=== PATIENT | male | born 1975 | race Caucasian/White ===

== ENCOUNTER 2021-01-03 20:43 | Emergency (ER) | payer MEDICARE, SELFPAY ==
[2021-01-03 21:18] VITALS: BP 156/82; PULSE 80; RESP 14; TEMP 36.8; O2SAT 97; BMI 29.4
--- NOTE | 2021-01-03 22:31 | CTR_ITS ---
PROCEDURE INFORMATION: Exam: CT Abdomen And Pelvis With Contrast Exam date and time: 01/03/2021 11:55 PM Age: 45 years old Clinical indication: Abdominal pain; Localized; Right lower quadrant (rlq); Patient HX: C/O rlq pain; Additional info: Rlq abd pain TECHNIQUE: Imaging protocol: Computed tomography of the abdomen and pelvis with contrast. Radiation optimization: All CT scans at this facility use at least one of these dose optimization techniques: automated exposure control; mA and/or kV adjustment per patient size (includes targeted exams where dose is matched to clinical indication); or iterative reconstruction. Contrast material: OMNI 300; Contrast volume: 95 ml; Contrast route: INTRAVENOUS (IV); COMPARISON: US gall bladder [id number] 02/01/2019 10:10 AM RADIATION DOSE METRICS: Total DLP (mGy-cm): 1776.16 FINDINGS: Lungs: Mild probable atelectasis in the lower lungs. No pleural fluid. Mediastinal space: There may be some mucosal/wall thickening involving the lower esophagus. This is nonspecific, but could represent evidence for esophagitis. Please correlate clinically. Liver: Unremarkable. Gallbladder and bile ducts: No definite gallbladder abnormality by CT. No biliary tree dilation. Pancreas: Unremarkable. Spleen: Unremarkable. Adrenal glands: Unremarkable. Kidneys and ureters: Unremarkable. Stomach and bowel: There are no CT findings to strongly suggest diverticulitis. Appendix: The appendix is visualized and appears normal. Intraperitoneal space: No free air, ascites, or bowel distention. Vasculature: No evidence for abdominal aortic aneurysm. Lymph nodes: No retroperitoneal adenopathy. Urinary bladder: Unremarkable as visualized. Reproductive: Essentially unremarkable for age. Bones/joints: No significant acute finding. Soft tissues: No significant acute finding. CT/CT abdomen pelvis w con* [id number] IMPRESSION: 1. Normal appendix. 2. No free air or bowel distention. 3. Possibly some thickening of the lower esophagus, see above discussion. 4. Other findings discussed above. Radiation Dose CTDIVOL = (mGy): DLP = 1776.16 (mGy-cm)
--- NOTE | 2021-01-03 22:31 | ED_ITS ---
HPI - Abdominal Pain General: Chief Complaint: Abdominal Pain Stated Complaint: poss appendicitis Time Seen by Provider: 01/03/21 22:31 Source: patient Mode of arrival: ambulatory Limitations: no limitations History of Present Illness: HPI narrative: Patient comes in for right-sided abdominal pain. Patient reports the pain has been on and off for the last few weeks. Patient comes in due to worsening pain tonight with increased nausea. Patient appears well. Patient appears in mild to no pain at rest. Patient is on medication for pain for his back and left shoulder. Patient does occasionally have constipation due to his pain medication. Review of Systems General: Reports: 10 or more systems reviewed and unremarkable except in HPI and below GI: Reports: abdominal pain PFSH ED PFSH: Social History (Updated 09/03/20 @ 16:30 by LUMA eBntley) Smoking and tobacco status: former smoker Alcohol intake: unknown Adopted: No Caregiver/support person: No Lives independently: No Household members: spouse Marital status: Current occupational status: disabled Physical Exam Const: COMMON NORMALS: no acute distress and patient oriented x3 GENERAL APPEARANCE: cooperative HENMT: COMMON NORMALS: normocephalic and Normal external nose present HEAD & SCALP: normal to inspection and normocephalic NOSE: Normal external nose present MOUTH: Normal oral and palatal mucosa present THROAT: posterior oropharynx normal Eye: GENERAL EYE: appearance normal, both eyes and all related structures Neck/C-Spine: COMMON NORMALS: full ROM Chest: COMMONS NORMALS: normal inspection of the chest Resp: COMMON NORMALS: normal respiratory effort EFFORT & INSPECTION: Yes able to speak in complete sentences Cardio: COMMON NORMALS: regular rate and regular rhythm RATE: regular rate RHYTHM: regular rhythm GI: COMMON NORMALS: Soft to palpation INSPECTION: Yes normal to inspection PALPATION: Yes Soft to palpation, Yes Tenderness to palpation present (GI) Details: RLQ and Yes Guarding due to palpation present (GI) : COMMON NORMALS: Yes no CVA tenderness BLADDER/KIDNEY EXAM: Yes no CVA tenderness Back/Pelvis: COMMON NORMALS: no CVA tenderness and thoracic and lumbar spine normal to inspection Extremity: COMMON NORMALS: normal to inspection Neuro: COMMON NORMALS: patient oriented x3 and moves all extremities Psych: COMMON NORMALS: mental status grossly normal and cooperative Skin: COMMON NORMALS: no rashes or lesions noted GENERAL SKIN EXAM: no rashes or lesions noted Course Vital Signs: Vital signs: Vital Signs Temperature 98.2 F 01/03/21 21:18 Pulse Rate 68 01/04/21 01:00 Respiratory Rate 16 01/04/21 01:00 Blood Pressure 124/74 01/04/21 00:30 Pulse Oximetry 98 01/04/21 01:00 MDM - Abdominal Pain MDM Narrative: Medical decision making narrative: Patient comes in today with complaints of lower quadrant abdominal pain. Patient reports pain for the last week or so. Patient states that he has not fallen or been lifting anything heavy. On exam bowel sounds are present and patient was very tender to the right lower quadrant with some psoas pain. Vital signs were normal. Differential diagnosis includes appendicitis, renal calculi, gastroenteritis, muscle strain. Laboratory values were unremarkable. Patient does have some mild elevation in his creatinine at 1.3. CT of the abdomen and pelvis was performed due to patient's significant localized right lower quadrant abdominal pain to rule out appendicitis. CT exam noted normal appendix. Further discussion with patient realized that patient had been doing abdominal crunches frequently and a few days ago did about 200 prior to the pain becoming unbearable. I suspect patient probably has muscle strain of abdomen and no further testing was performed. Patient was recommended to follow-up with primary care for further treatment. The recommended patient avoid excessive exercise until pain is resolved. Lab Data: Labs: Lab Results 01/03/21 01/03/21 01/04/21 Range/Units 22:49 22:49 00:36 WBC 6.7 (4.0-10.0) 10^3/ uL RBC 4.86 (4.1-5.3) 10^6/u L Hgb 16.0 (11.7-16.6) g/dL Hct 46.5 (42.0-52.0) % MCV 95.7 H (80-94) fL MCH 32.9 (28.0-34.0) pg MCHC 34.4 (30.0-36.0) g/dL RDW 12.5 (12.1-15.1) % Plt Count 173 (130-400) 10^3/c mm MPV 10.7 H (7.4-10.4) fL Neut % (Auto) 48.9 % Lymph % (Auto) 40.8 % [place] % (Auto) 8.3 % Eos % (Auto) 1.2 % Baso % (Auto) 0.6 % Neut # (Auto) 3.26 (1.8-7.7) 10^3/u L Lymph # (Auto) 2.7 (0.8-4.8) 10^3/u L [place] # (Auto) 0.6 (0.2-0.9) 10^3/u L Eos # (Auto) 0.1 (0.0-0.8) 10^3/u L Baso # (Auto) 0.0 (0.0-0.1) 10^3/u L Nucleated RBC % (a uto) 0 % Nucleated RBCs # 0.0 /100WBC Sodium 137 (136-145) mmol/L Potassium 3.9 (3.5-5.1) mmol/L Chloride 100 (98-107) mmol/L Carbon Dioxide 27 (22-29) mmol/L Anion Gap 13.9 (5-19) BUN 14 (6-20) mg/dL Creatinine 1.3 H (0.7-1.2) mg/dL GFR Calculation 59.7 L (90-130) mL/min Glucose 93 (65-115) mg/dL Calculated Osmolal ity 284 L (285-295) mOsm/k g Calcium 9.1 (8.5-10.5) mg/dL Total Bilirubin 0.5 (0.15-1.2) mg/dL AST 23 (0-40) U/L ALT 26 (0-41) U/L Alkaline Phosphata se 84 (40-130) IU/L C-Reactive Protein 1.1 (0.0-4.9) mg/L Total Protein 7.3 (6.6-8.7) g/dL Albumin 4.4 (3.5-5.2) g/dL Globulin 2.9 (1.3-4.6) g/dL Lipase 57 (13-60) U/L Urine Color Yellow (Yellow) Urine Appearance Clear (CLEAR) Urine pH 6 (5-7) Ur Specific Gravit y 1.010 (1.005-1.030) Urine Protein Neg (Negative) Urine Glucose (UA) Norm (Normal) Urine Ketones Negative (Negative) Urine Blood Neg (Negative) Urine Nitrate Negative (Negative) Urine Bilirubin Neg (Negative) Urine Urobilinogen 1 H (Negative) mg/dL Ur Leukocyte Kateyln ase Negative (Negative) Discharge Plan Discharge Patient Disposition: Home Clinical Impression: Abdominal muscle strain Qualifiers: Encounter type: initial encounter Qualified Code(s): S39.011A - Strain of muscle, fascia and tendon of abdomen, initial encounter Condition: Stable Discharge Orders: Discharge ED (Routine); Ordered 01/04/21 Ordered By: Romeo Healy Referrals: Phani Dennis DO [Primary Care Provider] - Discharge Diet: Usual diet Discharge Activity: Increase activity as tolerated Patient Instructions: Muscle Strain (ED), Opioid Safety Activity Restrictions/Additional Instructions: Activity as tolerated. Use ice or heat to the area for comfort. Drink plenty of water. Use acetaminophen or ibuprofen for pain. Follow-up with primary care for further treatment. Return to the emergency room for high fever or new concerns. Coding Level of Care Code ED Natural Resource Officer for Rhonda Fwd Exam Comprehensive
[2021-01-03 22:54] VITALS: BP 128/77; PULSE 78; RESP 14; O2SAT 95
[2021-01-03 22:56] LABS: Basophils % 0.6 %; Eosinophils # 0.1 10^3/uL (0.0-0.8); Eosinophils % 1.2 %; Hematocrit 46.5 % (42.0-52.0); Lymphocytes # 2.7 10^3/uL (0.8-4.8); Lymphocytes % 40.8 %; Mean Corpuscular HGB Conc 34.4 g/dL (30.0-36.0); Mean Corpuscular Hemoglobin 32.9 pg (28.0-34.0); Mean Corpuscular Volume 95.7 fL (80-94); Mean Platelet Volume 10.7 fL (7.4-10.4); Monocytes # 0.6 10^3/uL (0.2-0.9); Monocytes % 8.3 %; Neutrophils # 3.26 10^3/uL (1.8-7.7); Neutrophils % 48.9 %; Nucleated Red Blood Cells % 0 %; Platelet Count 173 10^3/cmm (130-400); Red Blood Count 4.86 10^6/uL (4.1-5.3); Red Cell Distribution Width 12.5 % (12.1-15.1); White Blood Count 6.7 10^3/uL (4.0-10.0)
[2021-01-03 23:00] VITALS: BP 142/87; PULSE 84; RESP 18; O2SAT 96
[2021-01-03 23:20] LABS: Alanine Aminotransferase 26 U/L (0-41); Albumin Level 4.4 g/dL (3.5-5.2); Alkaline Phosphatase 84 IU/L (40-130); Anion Gap 13.9 (5-19); Aspartate Amino Transferase 23 U/L (0-40); Blood Urea Nitrogen 14 mg/dL (6-20); C Reactive Protein 1.1 mg/L (0.0-4.9); Calcium 9.1 mg/dL (8.5-10.5); Carbon Dioxide 27 mmol/L (22-29); Chloride 100 mmol/L (98-107); Globulin 2.9 g/dL (1.3-4.6); Glomerular Filtration Rate 59.7 mL/min (90-130); Glucose 93 mg/dL (65-115); Lipase 57 U/L (13-60); Osmolality Calculated 284 mOsm/kg (285-295); Potassium 3.9 mmol/L (3.5-5.1); Sodium 137 mmol/L (136-145); Total Bilirubin 0.5 mg/dL (0.15-1.2); Total Protein 7.3 g/dL (6.6-8.7)
[2021-01-03 23:30] VITALS: BP 135/74; PULSE 74; RESP 16; O2SAT 98
[2021-01-03] MEDS: iohexol 300 mg/mL 100 mL Btl IV (23:57)
[2021-01-04] VITALS: PULSE 74; RESP 18; O2SAT 98
[2021-01-04 00:30] VITALS: BP 124/74; PULSE 71; RESP 18; O2SAT 94
[2021-01-04 01:00] VITALS: PULSE 68; RESP 16; O2SAT 98
[2021-01-04 01:09] LABS: Add Urine Microscopic? NO
[2021-01-04 01:30] VITALS: BP 128/78; PULSE 78; RESP 14; O2SAT 98
[2021-01-04 01:48] LABS: Bilirubin Urine Neg (Negative); Blood Urine Neg (Negative); Glucose Urine UA Norm (Normal); Ketones Urine Negative (Negative); Nitrate Urine Negative (Negative); Protein Urine Neg (Negative); Urine Appearance Clear (CLEAR); Urine Color Yellow (Yellow); pH Urine 6 (5-7)
[2021-01-04 01:49] LABS: Leukocyte Esterase Urine Negative (Negative); Urobilinogen Urine 1 mg/dL (Negative)
[2021-01-04 02:00] VITALS: BP 138/74; PULSE 74; RESP 16; O2SAT 98
[2021-01-04 02:11] VITALS: BP 138/82; PULSE 84; RESP 16; O2SAT 100
== END 2021-01-04 02:12 | disposition home or self-care (01) ==
PROVIDERS: Emergency Medicine; Emergency Provider Nurse Practitioner Family
DX: S39.011A Strain of muscle, fascia and tendon of abdomen, initial encounter (principal); Z87.891 Personal history of nicotine dependence; X58.XXXA Exposure to other specified factors, initial encounter
CPT/HCPCS: 74177; 80053; 81003; 83690; 85025; 86140; 99283; Q9967

== ENCOUNTER → 2021-01-08 11:18 | Outpatient (BNVA) | payer MEDICARE, SELFPAY | PROVIDERS: Referring Provider Nurse Practitioner Family; Visit Provider Nurse Practitioner Family | DX: R05 Cough (principal) | CPT/HCPCS: 71046 ==

== ENCOUNTER → 2022-01-13 08:55 | Outpatient (BNVA) | payer MEDICARE, SELFPAY | PROVIDERS: Visit Provider Internal Medicine Critical Care Medicine | DX: G47.10 Hypersomnia, unspecified (principal); J43.0 Unilateral pulmonary emphysema [MacLeod's syndrome]; K21.9 Gastro-esophageal reflux disease without esophagitis; R53.82 Chronic fatigue, unspecified; G47.30 Sleep apnea, unspecified | CPT/HCPCS: 99204 ==

== ENCOUNTER 2022-03-14 12:00 | Outpatient (CLI) | payer MEDICARE, SELFPAY | END 2022-03-14 12:01 | disposition home or self-care (01) | LOC: SLEEP 03-16 16:30 | PROVIDERS: Visit Provider Internal Medicine Critical Care Medicine | DX: G47.33 Obstructive sleep apnea (adult) (pediatric) (principal) | CPT/HCPCS: G0399 ==

== ENCOUNTER → 2022-05-16 12:33 | Outpatient (BNVA) | payer MEDICARE, SELFPAY | PROVIDERS: Visit Provider Nurse Practitioner Family | DX: M25.512 Pain in left shoulder (principal) | CPT/HCPCS: 73030 ==

== ENCOUNTER → 2022-07-07 13:06 | Outpatient (BNVA) | payer MEDICARE, SELFPAY | PROVIDERS: Referring Provider Nurse Practitioner Family; Visit Provider Nurse Practitioner Family | DX: X50.0XXA Overexertion from strenuous movement or load, initial encounter (principal); S46.002A Unspecified injury of muscle(s) and tendon(s) of the rotator cuff of left shoulder, initial encounter | CPT/HCPCS: 99213; 99214 ==

== ENCOUNTER 2022-08-31 10:42 | Outpatient (CLI) | payer MEDICARE, SELFPAY ==
--- NOTE | 2022-08-31 11:00 | MR_ITS ---
WS: [id number] MRI LEFT SHOULDER NONCONTRAST TECHNIQUE: Sagittal T2, coronal T1, T2 and proton density imaging. Axial gradient PDE imaging. CLINICAL INFORMATION: shoulder pain COMPARISON: MRI 2017 FINDINGS: Prior postoperative changes resection of the distal clavicle. Mild narrowing of the subacromial space is unchanged compared to previous. Small amount of edema at the AC joint. Normal supraspinatus. Norm al infraspinatus. Normal teres minor and subscapularis. Normal intra-articular biceps tendon. Normal biceps tendon in the bicipital groove. Normal biceps lab ral anchor. Subchondral cystic change involving the glenoid. Degenerative fraying of the glenoid labr um appears grossly intact. No significant joint effusion. MR/MR shoulder LT wo con* [id number] IMPRESSION: 1. Resection of the distal clavicle with mild edema at the AC joint. 2. Rotator cuff is intact. No rotator cuff tears. 3. Normal biceps tendon in the bicipital groove. Normal intra-articular biceps tendon. 4. Degenerative fraying of the glenoid labrum which appears grossly intact. 5. 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 6. No other suspicious findings.
== END 2022-08-31 10:43 | disposition home or self-care (01) ==
PROVIDERS: Visit Provider Nurse Practitioner Family
DX: M19.012 Primary osteoarthritis, left shoulder (principal); R60.0 Localized edema
CPT/HCPCS: 73221

== ENCOUNTER → 2022-09-22 09:05 | Outpatient (BNVA) | payer MEDICARE, SELFPAY | PROVIDERS: PCP Nurse Practitioner Family; Visit Provider Nurse Practitioner Family | DX: M25.512 Pain in left shoulder | CPT/HCPCS: 20610; 99214; J1100; J2795; J3301 ==

== ENCOUNTER 2022-09-29 06:00 | Outpatient (RCR) | payer MEDICARE, SELFPAY | END 2022-10-22 23:59 | disposition home or self-care (01) | LOC: MPT 06:00 | PROVIDERS: PCP Nurse Practitioner Family; Visit Provider Nurse Practitioner Family | DX: M25.512 Pain in left shoulder (principal); M19.012 Primary osteoarthritis, left shoulder | CPT/HCPCS: 97110; 97140; 97161; G0283 ==

== ENCOUNTER 2022-10-15 01:03 | Emergency (ER) | payer MEDICARE, SELFPAY ==
[2022-10-15 01:08] VITALS: BP 133/84; PULSE 84; RESP 18; TEMP 36.8; O2SAT 95; BMI 29.4
--- NOTE | 2022-10-15 01:12 | XRR_ITS ---
PROCEDURE INFORMATION: Exam: XR Chest Exam date and time: 10/15/2022 1:16 AM Age: 47 years old Clinical indication: Cough and fever; Additional info: Cough, fever TECHNIQUE: Imaging protocol: Radiologic exam of the chest. Views: 1 view. COMPARISON: CR XR chest 2V* [id number] 01/08/2021 11:32 AM FINDINGS: Lungs: Unremarkable. No consolidation. Pleural spaces: Unremarkable. No pleural effusion. No pneumothorax. Heart/Mediastinum: Cardiomegaly. Bones/joints: Unremarkable. XR/XR chest 1V portable [id number] IMPRESSION: Cardiomegaly, negative for infiltrate.
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
[2022-10-15 01:49] LABS: Influenza A by IFA positive (Negative); Influenza B by IFA negative (Negative)
[2022-10-15] MEDS: dexamethasone 4 mg Tablet 10 MG PO (01:56)
[2022-10-15] MEDS: doxycycline 100 mg Tablet PO (01:56)
[2022-10-15 02:00] VITALS: BP 134/75; PULSE 79; RESP 18; O2SAT 93
[2022-10-15 02:09] VITALS: BP 134/75; PULSE 79; RESP 18; O2SAT 93
[2022-10-15] MEDS: albuterol 8 gm MDI 2 PUFF INHALATION (02:23)
[2022-10-15 02:24] VITALS: PULSE 76; O2SAT 91
== END 2022-10-15 02:29 | disposition home or self-care (01) ==
PROVIDERS: Emergency Provider Nurse Practitioner Family; PCP Nurse Practitioner Family
DX: J40 Bronchitis, not specified as acute or chronic (principal)
CPT/HCPCS: 71045; 87804; 94640; 99283; J3535; J8540

== ENCOUNTER → 2022-10-19 10:55 | Outpatient (BNVA) | payer MEDICARE, SELFPAY | PROVIDERS: PCP Nurse Practitioner Family; Visit Provider Emergency Medicine | DX: J10.1 Influenza due to other identified influenza virus with other respiratory manifestations (principal); J40 Bronchitis, not specified as acute or chronic | CPT/HCPCS: 71046 ==

== ENCOUNTER 2022-10-23 06:00 | Outpatient (RCR) | payer MEDICARE, SELFPAY | END 2022-11-22 23:59 | disposition home or self-care (01) | LOC: MPT 06:00 | PROVIDERS: PCP Nurse Practitioner Family; Visit Provider Nurse Practitioner Family | DX: M25.512 Pain in left shoulder (principal); M19.012 Primary osteoarthritis, left shoulder | CPT/HCPCS: 97110; 97140 ==

== ENCOUNTER 2022-11-23 06:00 | Outpatient (RCR) | payer MEDICARE, SELFPAY | END 2022-12-20 23:59 | disposition home or self-care (01) | LOC: MPT 06:00 | PROVIDERS: PCP Nurse Practitioner Family; Visit Provider Nurse Practitioner Family | DX: M25.512 Pain in left shoulder (principal); M19.012 Primary osteoarthritis, left shoulder | CPT/HCPCS: 97110; 97140 ==

== ENCOUNTER → 2023-01-05 14:35 | Outpatient (BNVA) | payer MEDICARE, SELFPAY | PROVIDERS: PCP Nurse Practitioner Family; Visit Provider Nurse Practitioner Family | DX: J06.9 Acute upper respiratory infection, unspecified (principal) | CPT/HCPCS: 71046 ==

== ENCOUNTER 2023-03-18 17:09 | Emergency (ER) | payer MEDICARE, SELFPAY ==
[2023-03-18 17:18] VITALS: BP 131/84; PULSE 67; RESP 16; TEMP 36.7; O2SAT 97; BMI 29.4
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
--- NOTE | 2023-03-18 19:03 | PC.NURSE ---
while at bedside with pt. pt is in nad. pt updated on course of care.
[2023-03-18] MEDS: ketorolac 10 mg Tablet PO (19:58)
[2023-03-18 20:24] VITALS: PULSE 67; RESP 16; O2SAT 98
== END 2023-03-18 20:25 | disposition home or self-care (01) ==
PROVIDERS: Emergency Provider Nurse Practitioner; PCP Nurse Practitioner Family
DX: S39.012A Strain of muscle, fascia and tendon of lower back, initial encounter (principal); S13.4XXA Sprain of ligaments of cervical spine, initial encounter; M25.512 Pain in left shoulder; M25.511 Pain in right shoulder; V89.2XXA Person injured in unspecified motor-vehicle accident, traffic, initial encounter
CPT/HCPCS: 72040; 72100; 73030; 73560; 99284

== ENCOUNTER 2024-03-09 15:21 | Emergency (ER) | payer MEDICARE, SELFPAY ==
[2024-03-09 15:24] VITALS: BP 146/87; PULSE 69; RESP 24; TEMP 37.1; O2SAT 98; BMI 28.8
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
[2024-03-09 15:54] LABS: Basophils % 0.5 %; Eosinophils # 0.1 10^3/uL (0.0-0.8); Eosinophils % 1.1 %; Hematocrit 45.8 % (37-53); Lymphocytes % 30.9 %; Mean Corpuscular HGB Conc 35.6 g/dL (30-55); Mean Corpuscular Hemoglobin 33.6 pg (27-33); Mean Corpuscular Volume 94.4 fl (82-101); Monocytes # 0.6 10^3/uL (0.2-0.9); Monocytes % 9.8 %; Neutrophils # 3.74 10^3/uL (1.8-7.7); Neutrophils % 57.5 %; Nucleated Red Blood Cells % 0 %; Platelet Count 173 10^3/cmm (157-399); Red Blood Count 4.85 10^6/uL (3.85-5.65); Red Cell Distribution Width 12.1 % (12.1-15.1)
[2024-03-09 16:05] VITALS: BP 146/87; PULSE 74; O2SAT 96
[2024-03-09 16:10] LABS: Alanine Aminotransferase 36 U/L (0-41); Albumin Level 4.4 g/dL (3.5-5.2); Alkaline Phosphatase 70 U/L (40-130); Anion Gap 16.2 (5-19); Aspartate Amino Transferase 33 U/L (0-40); Blood Urea Nitrogen 20 mg/dL (6-20); Calcium 9.5 mg/dL (8.5-10.5); Carbon Dioxide 24 mmol/L (22-29); Chloride 99 mmol/L (98-107); Creatinine Clr Calc Pharmacy 85.4714; Globulin 2.6 g/dL (1.3-4.6); Glomerular Filtration Rate 64.6 mL/min (90-130); Glucose 92 mg/dL (65-115); Osmolality Calculated 282 mOsm/kg (285-295); Potassium 4.2 mmol/L (3.5-5.1); Sodium 135 mmol/L (136-145); Total Bilirubin 1.3 mg/dL (0.15-1.2)
[2024-03-09 16:11] LABS: Lactic Sepsis W/Reflex 0.9 mmol/L (0.5-2.2)
[2024-03-09 16:34] LABS: Creatine Phosphokinase 375 U/L (39-308)
--- NOTE | 2024-03-09 16:39 | PC.NURSE ---
UPON ENTERING THE ROOM, PT WAS VIOLENTLY SHAKING. DR BENEDICT NOTIFIED AND ENTERED THE ROOM. PT WAS ASSESSED BY DR BENEDICT. PT UPSET THAT NOTHING HAS BEEN DONE DUE TO PT HAVING SEIZURES. DR BENEDICT EDUCATED PT THAT PT IS NOT HAVING SEIZURES. PT STATES SO ARE YOU JUST GOING TO LET HIM SIT HERE ALL NIGHT AND SHAKE LIKE THAT? I CAN TAKE HIM SOMEWHERE ELSE IF THAT IS WHAT YOU ARE GOING TO DO. DR BENEDICT EDUCATED AND INFORMED PT THAT HE WAS CHECKING A FEW MORE TESTS TO TRY AND FIND A SOLUTION. PT VERBALIZED UNDERSTANDING. DOOR LEFT OPEN TO PT ROOM TO KEEP AN EYE ON PT.
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
--- NOTE | 2024-03-09 16:51 | PC.NURSE ---
PT WAS VISIBLY SHAKING IN PATIENTS ROOM. DR. BENEDICT AND I WENT TO ROOM AND ASSESSED PATIENT. PATIENT WAS SHAKING FOR APPROXIMATELY 15 SECONDS AND WHEN HE STOPPED SHAKING, HE WAS IMMEDIATELY ALERT AND ORIENTED AND STATED HE WAS NOT FAKING HIS SEIZURES. DR. BENEDICT VERBALIZED THAT HE DID NOT FEEL HE WAS FAKING SEIZURES AND THAT HE BELIEVES HE MAY BE HAVING FUNCTIONAL EPISODES. DR. BENEDICT VERBALIZED TO PATIENT THAT HE WOULD CALL NEUROLOGY TO CONSULT PATIENT.
[2024-03-09 16:55] VITALS: BP 130/90; PULSE 110; O2SAT 91
--- NOTE | 2024-03-09 17:21 | ECG_ITS ---
[facility] Test Date: 2024-03-09 Pat Name: Octaviano Rizzo Department: Room: Gender: Male Hem Marker: : 1975 Requested By: Kyle Davis Order Number: [id number] Irena MD: Yoselyn Cabral M.D. Measurements Intervals [place] Rate: 103 P: 47 MN: 148 QRS: 238 QRSD: 84 T: 67 QT: 340 QTc: 445 Interpretive Statements SINUS TACHYCARDIA Non-specific ST changes Poor R wave progression across anterior leads Possible old inferior CT No previous ECG available for comparison Electronically Signed On 03-10-2024 13:31:45 CDT by Yoselyn Cabral M.D. [id number]
== END 2024-03-09 19:10 | disposition short-term general hospital (02) ==
PROVIDERS: Emergency Provider Family Medicine; PCP Nurse Practitioner Family
DX: F44.4 Conversion disorder with motor symptom or deficit (principal); W86.0XXA Exposure to domestic wiring and appliances, initial encounter
CPT/HCPCS: 70450; 72040; 73030; 80053; 82550; 83605; 85025; 93005; 99285

== ENCOUNTER → 2025-07-17 13:43 | Outpatient (BNVA) | payer MEDICARE, SELFPAY | PROVIDERS: PCP Nurse Practitioner Family; Visit Provider Student in an Organized Health Care Education/Training Program | DX: R12 Heartburn (principal) | CPT/HCPCS: 99204 ==

== ENCOUNTER 2025-07-21 11:22 | Day surgery (SDC) | payer MEDICARE, SELFPAY ==
--- NOTE | 2025-07-21 11:31 | W.PM.OPSUD ---
Surgery/Procedure H&P Update DATE OF PROCEDURE: July 21, 2025 DATE H&P PERFORMED: 07/17/25 H&P UPDATE INFORMATION: I have reviewed H&P completed within last 30 days, I have examined patient prior to procedure, No changes to prior documentation and Risks and benefits of the procedure reviewed PLANNED PROCEDURE: Operation Date: 07/21/25 12:30 Proposed Procedures p EGD EGD with Biopsy [id number] R12(Not Applicable) - Jason Quiroga MD
[2025-07-21 11:45] VITALS: BP 129/80; PULSE 76; RESP 17; TEMP 36.7; O2SAT 96; BMI 29.8
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
[2025-07-21 12:11] VITALS: BP 102/59; PULSE 71; RESP 16; TEMP 36.4; O2SAT 92
--- NOTE | 2025-07-21 12:42 | ANE.PACU2 ---
Inpatient post-anesthesia follow up: Airway intact: Yes Vital signs: Temperature 97.6 F Pulse Rate 71 Respiratory Rate 16 Blood Pressure 102/59 Pulse Oximetry 92 Oxygen Delivery Me thod Room Air Oxygen Flow Rate Fraction of Inspir ed Oxygen Hydration adequate: Yes Nausea and vomiting: No Pain level: 1 Mental status: Baseline
== END 2025-07-21 12:42 | disposition home or self-care (01) ==
PROVIDERS: PCP Nurse Practitioner Family; Visit Provider Student in an Organized Health Care Education/Training Program
PROC: 0DJ08ZZ Inspection of Upper Intestinal Tract, Via Natural or Artificial Opening Endoscopic (ICD-10-PCS; principal; 2025-07-21 12:30)
DX: R12 Heartburn (principal); K29.70 Gastritis, unspecified, without bleeding; K21.9 Gastro-esophageal reflux disease without esophagitis; E07.9 Disorder of thyroid, unspecified
CPT/HCPCS: 43239; 88305; J2704; J7030

== ENCOUNTER → 2025-08-25 10:05 | Outpatient (BNVA) | payer MEDICARE, SELFPAY | PROVIDERS: PCP Nurse Practitioner Family; Visit Provider Student in an Organized Health Care Education/Training Program | DX: Z09 Encounter for follow-up examination after completed treatment for conditions other than malignant neoplasm (principal) | CPT/HCPCS: 99213 ==